=== PATIENT | female | born 1955 | race Caucasian/White ===

== ENCOUNTER 2018-06-27 05:54 | Day surgery (SDC) | payer OTHER ==
[~2018-06-27] VITALS: Ht 157.5 cm; Wt 52.6 kg
--- NOTE | ~2018-06-27 | OP ---
PATIENT NAME: HENRY RODRIGUEZ MEDICAL RECORD: [id number] LOCATION:D.OPS ADMISSION DATE: SURGEON: ANGEL COLEMAN MD DATE OF OPERATION: 06/27/2018 PREOPERATIVE DIAGNOSIS: Ascending colon polyp, sessile, large. POSTOPERATIVE DIAGNOSES: Ascending colon polyp, sessile, large with a secondary ascending colon polyp, which was large as well. Polyp #1 was approximately 2.5 cm. Polyp #2 was approximately 2.2 cm. Inadequate prep. PROCEDURES: 1. Total colonoscopy to cecum. 2. Polypectomies utilizing endoscopic mucosal resection times 2. SURGEON: Angel Coleman MD DIE SINKER APPRENTICE: None. BLOOD LOSS: Minimal. ANESTHESIA: General. COMPLICATIONS: None. The risks, possible complications and alternatives to procedure were explained to the patient. She elects to proceed. OPERATIVE COURSE: The patient was conveyed to the operating room electively on 06/27/2018. General anesthesia was induced by the anesthesia staff. The patient was placed in the Ignacio position. A digital rectal examination was performed. A colonoscope was inserted through the anus. It was easily advanced to the cecum. Upon withdrawal, I irrigated and aspirated extensively. The prep was inadequate. The pullback was greater than 25-minute pullback. The first polyp that I encountered, I advanced a sclerotherapy needle. I injected epinephrine submucosally to create a pillow. I then advanced an endoscopic snare and was able to snare the polyp. Some residual polypoid tissue was then ablated utilizing the argon plasma traffic clerk with the right colon setting in the forced mode. Unfortunately, because of the amount of stool in the right colon, the polyp was lost. I spent a good bit of time aspirating stool, trying to find the polyp and I just could not because of the poor prep. I then identify the secondary polyp, which was on a fold. A sclerotherapy needle was advanced. A submucosal injection of epinephrine was performed to create a pillow. I then advanced an endoscopic snare. Utilizing the coagulation setting and then the cut setting, I removed this polyp. There was a tiny surrounding amount of polypoid tissue. This was ablated utilizing the argon plasma traffic clerk with right colon setting in the forced mode. I then grasped this polyp with an endoscopic retrieval net and slowly withdrew the polyp while examining the colonic mosley. I noted no other polyps. The polyp was then retrieved in its entirety. The patient was then extubated and conveyed to post-anesthesia care unit where she was in stable condition. I will see her in the office in 2 to 3 weeks. My plan will be for another colonoscopy with the argon plasma traffic clerk to take place in 1 year. OPERATIVE REPORT [id number] HENRY RODRIGUEZ TRANSINT:[id number] Voice Confirmation ID: [id number] DOCUMENT ID: [id number] ANGEL COLEMAN MD at 1118 CC: Alber VAZ AMY [id number] DICTATION DATE: 06/27/18 1000 TERRAZZO INSTALLER: 06/27/18 1041 REG [facility] [address] [place] [address]
[~2018-06-27 05:54] MED LIST: LISINOPRIL10 MG PO
[2018-06-27 06:26] LABS: HEMATOCRIT 39.8 % (36.0-48.0); HEMOGLOBIN 13.8 g/dL (12-16); MCH 32.7 pg (26.0-34.0); MCHC 34.7 g/dL (31.0-37.0); MCV 94.3 fL (80.0-100.0); MEAN PLATELET VOLUME 8.9 fL (7.4-10.4); RBC 4.22 10x6/uL (4.00-5.40); RDW 13.4 % (11.5-14.5); WBC 7.2 10x3/uL (4.8-10.8)
[2018-06-27 07:04] VITALS: BP 102/70; Ht 157.5 cm; Wt 52.6 kg
== END 2018-06-27 11:55 | disposition home or self-care (01) ==
LOC: D.PAN 05:54 → D.OPS 05:54 → D.PAN 08:00 → D.OPS 11:55
PROVIDERS: Anesthesiology
DX: D12.2 Benign neoplasm of ascending colon (principal); Z01.812 Encounter for preprocedural laboratory examination